=== PATIENT | male | born 1965 | race Caucasian/White ===

== ENCOUNTER 2023-02-25 10:55 | Day surgery (SDC) | payer BC ==
[2023-02-21 09:45] LABS: BASOPHILS # (AUTO) 0.1 X10'3 (0-0.2); EOSINOPHILS # (AUTO) 0.1 X10'3 (0-0.9); LYMPHOCYTES # (AUTO) 0.8 X10'3 (1.1-4.8); MEAN CORPUSCULAR VOLUME 96.5 FL (78-98); MEAN PLATELET VOLUME 6.7 FL (7.4-10.4); MONOCYTES # (AUTO) 0.5 X10'3 (0-0.9); NEUTROPHILS % (AUTO) 67.1 % (42-75)
[2023-02-21 09:47] LABS: BASOPHILS % (AUTO) 1.8 % (0-1); EOSINOPHILS % (AUTO) 2.4 % (0-6); HEMATOCRIT 32.7 % (42.0-52.0); HEMOGLOBIN 11.5 g/dl (14.0-17.9); LYMPHOCYTES % (AUTO) 17.5 % (21-51); MEAN CORPUSCULAR HGB CONC 35.3 g/dL (33.0-36.5); MONOCYTES % (AUTO) 11.2 % (2-12); NEUTROPHILS # (AUTO) 3.1 X10'3 (1.8-7.7); PLATELET COUNT 275 X10'3 (140-440); RED BLOOD COUNT 3.39 X10'6 (4.70-6.10); RED CELL DISTRIBUTION WIDTH 12.7 % (11.5-14.5); WHITE BLOOD COUNT 4.6 X10'3 (4.5-11.0)
[2023-02-21 10:01] LABS: APTT 26 SECONDS (22-32)
[2023-02-21 10:06] LABS: ALBUMIN 4.4 G/DL (3.4-5.0); ANION GAP 6 (8-16); BLOOD UREA NITROGEN 28 MG/DL (7-18); BUN/CREATININE RATIO 22.4 (10.0-20.0); CALCIUM 9.9 MG/DL (8.5-10.1); CHLORIDE 97 MMOL/L (99-107); CHOL/HDL RATIO 1.8 (0.00-4.99); CHOLESTEROL 160 MG/DL (0-200); CREATININE 1.25 MG/DL (0.60-1.10); GLUCOSE 106 MG/DL (70-104); HDL CHOLESTEROL 89 MG/DL (35-60); LDL CHOLESTEROL 55 MG/DL (50-100); POTASSIUM 4.4 MMOL/L (3.5-5.1); SODIUM 134 MMOL/L (135-145); TOTAL CARBON DIOXIDE 30.7 MMOL/L (24-32); TRIGLYCERIDES 36 MG/DL (20-135); eGFR 60 ML/MIN
[2023-02-25] VITALS (10 sets, daily range): BP systolic 92–144; BP diastolic 53–73
[~2023-02-25] VITALS: Ht 175.3 cm; Wt 72.6 kg
[~2023-02-25 10:55] MED LIST: ASPI-611 PO; ATOR40TA71 PO; CLOP75TA33 PO; LISI10TA27 PO; LOP25T PO; VARE0.5T PO
[2023-02-25] MEDS ORDERED: normal saline 1,000 ML IV SCH (11:10)
[2023-02-25] MEDS ORDERED: diphenhydrAMINE 25mg capsule PO PRN (11:10)
[2023-02-25] MEDS ORDERED: LORazepam 0.5 MG tablet PO PRN (11:10)
[2023-02-25] MEDS ORDERED: nitroGLYCERIN-Tridil 50MG/D5W 250 ML IV ONE (11:49)
[2023-02-25] MEDS ORDERED: midazolam 1 mg/ML 2ml injection ONE ×2 (11:49→12:27)
[2023-02-25] MEDS ORDERED: LIDOcaine 1% (10mg/ml) 2ml vial ONE (11:49)
[2023-02-25] MEDS ORDERED: fentaNYL/PF 50MCG/1 ML 2ML syringe ONE (11:49)
[2023-02-25] MEDS ORDERED: verapamil 2.5 mg/ml inj IV ONE (11:49)
[2023-02-25] MEDS ORDERED: heparin 1,000unit/ml 10ml vial 10 ML ONE (11:50)
[2023-02-25] MEDS ORDERED: iohexol 350MG/ML 100ml bottle IV ONE ×2 (11:50→12:31)
[2023-02-25] MEDS ORDERED: iohexol 350 MG/ML 50ML vial IV ONE (11:50)
[2023-02-25] MEDS ORDERED: ATOR-2 PO (11:53)
[2023-02-25] MEDS ORDERED: LISI40TA13 PO (11:53)
[2023-02-25] MEDS ORDERED: NITR0.4T51 SL (11:54)
[2023-02-25] MEDS ORDERED: AMLO5TAB16 PO (11:54)
[2023-02-25] MEDS ORDERED: CHLO25TA10 PO (11:54)
[2023-02-25] MEDS ORDERED: SERT-432 PO (11:55)
[2023-02-25] MEDS ORDERED: MULT-1085 PO (11:56)
[2023-02-25] MEDS ORDERED: LIDOcaine 1% 30ml preserv. free vial ONE (12:24)
[2023-02-25] MEDS ORDERED: proCHLORperazine 10 MG/2 ml inj IV PRN (13:15)
[2023-02-25] MEDS ORDERED: OXAZEpam 15mg capsule PO PRN (13:15)
[2023-02-25] MEDS ORDERED: ondansetron/PF 4mg/2ml inj IV PRN (13:15)
== END 2023-02-25 16:50 | disposition home or self-care (01) ==
LOC: SSTAY O 10:55
PROVIDERS: ATTEND Student in an Organized Health Care Education/Training Program
DX: R94.39 Abnormal result of other cardiovascular function study (principal); I25.10 Atherosclerotic heart disease of native coronary artery without angina pectoris; I10 Essential (primary) hypertension; E78.5 Hyperlipidemia, unspecified; E11.9 Type 2 diabetes mellitus without complications; Z95.5 Presence of coronary angioplasty implant and graft; Z79.82 Long term (current) use of aspirin; Z79.899 Other long term (current) drug therapy; F17.290 Nicotine dependence, other tobacco product, uncomplicated; Z88.5 Allergy status to narcotic agent; Z79.01 Long term (current) use of anticoagulants
CPT/HCPCS: 36415; 80048; 80061; 85025; 85610; 85730; 93005; 93458; 99152; 99153; C1760; C1894; J1644; J2250; J3010; J3490; J7030; Q0163; Q9967; A6258

== ENCOUNTER 2023-04-07 06:07 | Inpatient (IN) | payer BC ==
[2023-04-04 14:17] LABS: CLARITY,URINE CLEAR (Clear); COLOR,URINE STRAW (Yellow); GLUCOSE, URINE NEGATIVE (Neg); KETONES,URINE NEGATIVE (Neg); LEUKOCYTE ESTERASE ,URINE NEGATIVE (Neg); NITRITES, URINE NEGATIVE (Neg); OCCULT BLOOD,URINE NEGATIVE (Neg); PH,URINE 6.5 (4.8-8.0); PROTEIN,URINE NEGATIVE (Neg); UROBILINOGEN,URINE 0.2 E.U/dL (0.2-1.0)
[2023-04-04 14:19] LABS: UA COLLECTION TYPE VOIDED
[2023-04-04 14:27] LABS: PRE OP PROTIME 9.9 SECONDS (9.0-12.0)
[2023-04-04 14:28] LABS: ALBUMIN 4.4 G/DL (3.4-5.0); ALBUMIN/GLOBULIN RATIO 1.4 (1.1-1.5); ALKALINE PHOSPHATASE 73 IU/L (46-116); BLOOD UREA NITROGEN 15 MG/DL (7-18); BUN/CREATININE RATIO 15.8 (10.0-20.0); CALCIUM 9.3 MG/DL (8.5-10.1); CHLORIDE 87 MMOL/L (99-107); CREATININE 0.95 MG/DL (0.60-1.10); PRE OP ALT 77 U/L (30-65); PRE OP ANION GAP 10 (8-16); PRE OP AST 51 U/L (10-37); PRE OP BILIRUB, TOTAL 0.6 MG/DL (0.0-1.0); PRE OP GLUCOSE 130 MG/DL (70-104); PRE OP POTASSIUM 3.7 MMOL/L (3.4-5.1); TOTAL CARBON DIOXIDE 30.1 MMOL/L (24-32); TOTAL PROTEIN 7.5 G/DL (6.4-8.2); eGFR 82 ML/MIN
[2023-04-04 14:33] LABS: PRE OP INR 0.9 INR
[2023-04-04 14:34] LABS: PRE OP SODIUM 127 MMOL/L (135-145)
[2023-04-04 15:10] LABS: BASOPHILS # (AUTO) 0.1 X10'3 (0-0.2); BASOPHILS % (AUTO) 1.5 % (0-1); EOSINOPHILS % (AUTO) 1.1 % (0-6); LYMPHOCYTES # (AUTO) 0.7 X10'3 (1.1-4.8); LYMPHOCYTES % (AUTO) 17.3 % (21-51); MEAN CORPUSCULAR HEMOGLOBIN 34.3 PG (27.0-31.0); MEAN CORPUSCULAR HGB CONC 35.2 g/dL (33.0-36.5); MEAN CORPUSCULAR VOLUME 97.3 FL (78-98); MEAN PLATELET VOLUME 6.9 FL (7.4-10.4); MONOCYTES # (AUTO) 0.4 X10'3 (0-0.9); MONOCYTES % (AUTO) 10.2 % (2-12); NEUTROPHILS % (AUTO) 69.9 % (42-75); PRE OP HEMATOCRIT 31.8 % (42.0-52.0); PRE OP HEMOGLOBIN 11.2 g/dL (14.0-17.9); PRE OP PLATELET COUNT 283 X10'3 (140-440); RED BLOOD COUNT 3.26 X10'6 (4.70-6.10); RED CELL DISTRIBUTION WIDTH 12.8 % (11.5-14.5)
[2023-04-04 15:35] LABS: HEMOGLOBIN A1C 5.6 % (4.5-6.2)
[~2023-04-07] VITALS: Ht 175.3 cm; Wt 77.6 kg
[2023-04-07] VITALS (21 sets, daily range): BP systolic 99–141; BP diastolic 53–79
[~2023-04-07 06:07] MED LIST changes: +AMLO5TAB16 PO; +ATOR-2 PO; -ATOR40TA71 PO; +CHLO25TA10 PO; -CLOP75TA33 PO; -LISI10TA27 PO; +LISI40TA13 PO; -LOP25T PO; +LORazepam 2 mg/ml vial IV PRN; +MULT-1085 PO; +NITR0.4T51 SL; +SERT-432 PO; -VARE0.5T PO; +cefazolin 2gm/D5W 100mL 100 ML IV ONE; +dextrose 50%-water 50ml dispensing syringe IV PRN; +famotidine 20mg tablet PO ONE; +ringers solution, lacted 1,000 ML IV SCH; +vancomycin 1,500 MG in NS 300ml IV soln IV ONE
[2023-04-07] MEDS ORDERED: BUPIVAcaine/PF 2.5 mg/ml (0.25%) 30ml vial ONE (06:58)
[2023-04-07] MEDS ORDERED: epiNEPHrine 1 mg/ml inj ONE (06:58)
[2023-04-07] MEDS ORDERED: ceFAZolin 1000mg inj ONE (06:58)
[2023-04-07 07:29] LABS: ISTAT HGB 9.9 g/dl (14.0-17.9); ISTAT IONIZED CALCIUM 1.24 mmol/L (1.03-1.32); ISTAT K 4.4 mmol/L (3.5-5.1)
[2023-04-07 07:35] LABS: ABG BASE EXCESS -0.3 mmol/L (-2.0-2.0); ABG HCO3 22.7 mmol/L (22.0-26.0); ABG OXYGEN SATURATION 96.6 % (94-97); ABG PCO2 (T) 31.9 mmHg (35.0-48.0); ABG PO2 (T) 93.5 mmHg (75.0-100.0); ALLEN'S TEST POSITIVE; FCOHb 1.6 % (0.0-3.9); FMetHb 0.2 % (0.0-1.5); FO2Hb 94.9 % (94-97); TOTAL HEMOGLOBIN 11.8 G/dl (14.0-17.9)
[2023-04-07] MEDS ORDERED: MIDAZolam 1mg/ml 10ml vial ONE (07:37)
[2023-04-07] MEDS ORDERED: SUfentanil 50mcg/ml 1ml amp IV ONE (07:38)
[2023-04-07] MEDS ORDERED: NORepinephrine 8 MG in NS 250 ML BAG (32 mcg/ml) IV ONE (07:44)
[2023-04-07] MEDS ORDERED: rocuronium 10mg/ml inj IV ONE ×5 (07:44→09:06)
[2023-04-07] MEDS ORDERED: isoflurane 100ml inhalation liquid IH ONE (07:44)
[2023-04-07] MEDS ORDERED: nitroGLYCERIN in D5W 50mg/250ml (Tridil) infusion IV ONE (07:44)
[2023-04-07] MEDS ORDERED: LIDOcaine 2% (20mg/ml) 5ml vial ONE (07:47)
[2023-04-07] MEDS ORDERED: propofol inj 20 ML IV ONE (07:47)
[2023-04-07] MEDS ORDERED: 0.9 % SODIUM CHLORIDE 10 ML VIAL ONE ×3 (07:47)
[2023-04-07] MEDS ORDERED: phenylephrine 10mg/ml inj. -priapism dosing ONE (07:48)
[2023-04-07 08:38] LABS: ABG BASE EXCESS 3.1 mmol/L (-2.0-2.0); ABG HCO3 26.9 mmol/L (22.0-26.0); ABG OXYGEN SATURATION 99.6 % (94-97); ABG PCO2 37.7 mmHg (35.0-48.0); ABG PO2 516.7 mmHg (75.0-100.0); CL (ABG) 99 mmol/L (99-107); FCOHb 0.4 % (0.0-3.9); FMetHb 0.3 % (0.0-1.5); FO2Hb 98.9 % (94-97); GLUCOSE (ABG) 90 mg/dl (70-104); IONIZED CA (ABG) 1.13 mmol/L (1.10-1.30); K (ABG) 3.6 mmol/L (3.5-5.1); TOTAL HEMOGLOBIN 9.6 G/dl (14.0-17.9)
[2023-04-07] MEDS ORDERED: NORepinephrine 1 mg/ml inj IV ONE (09:00)
[2023-04-07] MEDS ORDERED: albumin (human) 25% 100 ML IV solution IV ONE (09:00)
[2023-04-07] MEDS ORDERED: methylPREDNISolone sod succ 1000mg vial ONE (09:00)
[2023-04-07] MEDS ORDERED: calcium chloride 100 MG/1 ML inj IV ONE (09:00)
[2023-04-07] MEDS ORDERED: mannitol 12.5gm/50mL VIAL IV ONE (09:00)
[2023-04-07] MEDS ORDERED: potassium Cl 2 mEq/ml inj IV ONE (09:00)
[2023-04-07] MEDS ORDERED: sodium bicarbonate (8.4%) 1 mEq/ml syringe ONE (09:00)
[2023-04-07] MEDS ORDERED: aminocaproic acid 250 MG/1 ML inj. ONE (09:00)
[2023-04-07] MEDS ORDERED: heparin 10,000 units/1 ML INJ ONE ×2 (09:00→14:00)
[2023-04-07] MEDS ORDERED: heparin 1,000 units/ml 10ml inj ONE (09:00)
[2023-04-07] MEDS ORDERED: LIDOcaine 2% (20 mg/ml) 5ml cardiac syringe ONE (09:00)
[2023-04-07] MEDS ORDERED: papaverine 30 mg/ml 2ml inj. IV ONE (09:11)
[2023-04-07] MEDS ORDERED: heparin 10,000 units/1 ML INJ IR ONE (09:12)
[2023-04-07] MEDS ORDERED: fentaNYL/PF 50MCG/1 ML 2ML syringe IV PRN (10:20)
[2023-04-07] MEDS ORDERED: ondansetron/PF 4mg/2ml inj IV PRN ×2 (10:20→13:35)
[2023-04-07] MEDS ORDERED: propofol 1000mg/100ml bottle 100 ML IV SCH (10:20)
[2023-04-07] MEDS ORDERED: ringers solution, lacted 1,000 ML IV SCH (10:20)
[2023-04-07] MEDS ORDERED: FENTANYL-0.9 % NACL/PF 100 ML IV PRN (10:20)
[2023-04-07 10:38] LABS: ABG BASE EXCESS 5.1 mmol/L (-2.0-2.0); ABG HCO3 29.2 mmol/L (22.0-26.0); ABG OXYGEN SATURATION 99.7 % (94-97); ABG PCO2 40.8 mmHg (35.0-48.0); ABG PO2 302.6 mmHg (75.0-100.0); CL (ABG) 98 mmol/L (99-107); FCOHb 1.1 % (0.0-3.9); FMetHb 0.3 % (0.0-1.5); FO2Hb 98.3 % (94-97); GLUCOSE (ABG) 103 mg/dl (70-104); IONIZED CA (ABG) 1.03 mmol/L (1.10-1.30); K (ABG) 4.9 mmol/L (3.5-5.1); TOTAL HEMOGLOBIN 7.4 G/dl (14.0-17.9)
[2023-04-07 11:28] LABS: ABG BASE EXCESS VENOUS 1.7 mmol/L (-2.0 - 2.0); ABG HCO3 VENOUS 25.7 mmol/L (21.0-28.0); ABG PCO2 VENOUS 37.1 mmHg (41.0-54.0); ABG PO2 VENOUS 42.5 mmHg (25.0-35.0); CL (ABG) 99 mmol/L (99-107); FCOHb VENOUS 1.2 %; FHHb VENOUS 20.9 %; FMetHb VENOUS 0.3 % (0.0 - 0.5); FO2Hb VENOUS 77.6 %; GLUCOSE (ABG) 111 mg/dl (70-104); IONIZED CA (ABG) 1.06 mmol/L (1.10-1.30); K (ABG) 5.9 mmol/L (3.5-5.1); TOTAL HEMOGLOBIN 7.6 G/dl (14.0-17.9)
[2023-04-07 12:16] LABS: ABG BASE EXCESS 2.5 mmol/L (-2.0-2.0); ABG HCO3 26.5 mmol/L (22.0-26.0); ABG OXYGEN SATURATION 99.6 % (94-97); ABG PCO2 37.9 mmHg (35.0-48.0); ABG PO2 365.9 mmHg (75.0-100.0); CL (ABG) 97 mmol/L (99-107); FCOHb 1.3 % (0.0-3.9); FMetHb 0.3 % (0.0-1.5); GLUCOSE (ABG) 147 mg/dl (70-104); IONIZED CA (ABG) 1.46 mmol/L (1.10-1.30); TOTAL HEMOGLOBIN 6.4 G/dl (14.0-17.9)
[2023-04-07 12:34] LABS: ABG OXYGEN SATURATION 99.7 % (94-97); ABG PCO2 37.2 mmHg (35.0-48.0); ABG PO2 326.3 mmHg (75.0-100.0); CL (ABG) 100 mmol/L (99-107); FCOHb 1.2 % (0.0-3.9); FMetHb 0.3 % (0.0-1.5); FO2Hb 98.2 % (94-97); GLUCOSE (ABG) 140 mg/dl (70-104); IONIZED CA (ABG) 1.23 mmol/L (1.10-1.30); K (ABG) 4.3 mmol/L (3.5-5.1); TOTAL HEMOGLOBIN 7.2 G/dl (14.0-17.9)
[2023-04-07] MEDS ORDERED: albumin (Human) 5% 250ml 250 ML IV ONE (12:51)
[2023-04-07] MEDS ORDERED: dexamethasone sod phosphate 4mg/ml inj. ONE (13:04)
[2023-04-07] MEDS ORDERED: ondansetron/PF 4mg/2ml inj ONE (13:04)
[2023-04-07] MEDS ORDERED: Neutra Phos packet PO PRN (13:35)
[2023-04-07] MEDS ORDERED: nitroGLYCERIN-Tridil 50MG/D5W 250 ML IV PRN (13:35)
[2023-04-07] MEDS ORDERED: niCARDipine-NS 40mg/200ml IVPB 200 ML IV PRN (13:35)
[2023-04-07] MEDS ORDERED: morphine 4 MG/ML inj SYRINge IV PRN (13:35)
[2023-04-07] MEDS ORDERED: potassium Cl 40MEQ/270ML bag 250 ML IV PRN (13:35)
[2023-04-07] MEDS ORDERED: magnesium 4gm in 100ml NS 100 ML IV PRN (13:35)
[2023-04-07] MEDS ORDERED: bisacodyl 10mg suppository rectal RC PRN (13:35)
[2023-04-07] MEDS ORDERED: metoclopramide 5 mg/ml inj IV PRN (13:35)
[2023-04-07] MEDS ORDERED: morphine 4 MG/ML inj SYRINge ONE (13:35)
[2023-04-07] MEDS ORDERED: Insulin Reg/NS 100units/100mL 100 ML IV SCH (13:35)
[2023-04-07] MEDS ORDERED: normal saline 250ml IV soln 250 ML IV PRN (13:35)
[2023-04-07] MEDS ORDERED: mineral oil 133ml enema RC PRN (13:35)
[2023-04-07] MEDS ORDERED: magnesium hydroxide 30ml (MOM) UD suspension PO PRN (13:35)
[2023-04-07] MEDS ORDERED: DOPamine 400mg/D5W 250ml 250 ML IV PRN (13:35)
[2023-04-07] MEDS ORDERED: morphine 2 MG/ML inj. syringe IV PRN (13:35)
[2023-04-07] MEDS ORDERED: sodium phosphate inj. 30 MMOL in dextrose 5%-water 250 ML IV PRN (13:35)
[2023-04-07] MEDS ORDERED: potassium Cl 20mEq/100mL bag 100 ML IV PRN (13:35)
[2023-04-07] MEDS ORDERED: potassium CL 10mEq/100ml bag 100 ML IV PRN (13:35)
[2023-04-07] MEDS ORDERED: insulin glargine (Lantus) pen - multi-dose SQ PRN (13:35)
[2023-04-07] MEDS ORDERED: potassium Cl 40MEQ/1/2NS 520ml 520 ML IV PRN (13:35)
[2023-04-07] MEDS ORDERED: dextrose 50%-water 50ml dispensing syringe IV PRN (13:35)
[2023-04-07] MEDS ORDERED: sodium chloride 0.45% 1,000 ML IV SCH (13:35)
--- NOTE | 2023-04-07 13:45 | NUR ---
Received to room , accompanied by Marlen Rousseau and surgical crew. Placed on ventilator, to cafeteria monitor, arterial line and PA line pressure zeroed & monitored. Chest tubes to suction at 20 cm. Holloway cath to gravity drainage. Dressings are dry and intact. See assessment record. All vasoactive drugs are infusing via central line.
[2023-04-07] MEDS: NORepinephrine 8mg/ 250ml NS 250 ML IV SCH (14:00)
[2023-04-07] MEDS ORDERED: papaverine 30 mg/ml 2ml inj. ONE (14:00)
[2023-04-07 14:26] LABS: APTT 25 SECONDS (22-32)
[2023-04-07 14:27] LABS: ALANINE AMINOTRANSFERASE 49 U/L (12-78); ALBUMIN 3.5 G/DL (3.4-5.0); ALBUMIN/GLOBULIN RATIO 1.9 (1.1-1.5); ALKALINE PHOSPHATASE 50 IU/L (46-116); ANION GAP 9 (8-16); ASPARTATE AMINO TRANSFERASE 46 U/L (10-37); BILIRUBIN,TOTAL 0.6 MG/DL (0.1-1.0); BLOOD UREA NITROGEN 17 MG/DL (7-18); CALCIUM 8.4 MG/DL (8.5-10.1); CHLORIDE 103 MMOL/L (99-107); GLUCOSE 113 MG/DL (70-104); POTASSIUM 3.9 MMOL/L (3.5-5.1); SODIUM 139 MMOL/L (135-145); TOTAL CARBON DIOXIDE 26.7 MMOL/L (24-32); TOTAL PROTEIN 5.3 G/DL (6.4-8.2); eGFR 77 ML/MIN
[2023-04-07 14:35] LABS: PHOSPHORUS 1.2 MG/DL (2.3-4.5)
[2023-04-07] MEDS: albumin (Human) 5% 250ml 250 ML IV PRN ×3 (15:01→16:59)
[2023-04-07 15:06] LABS: BASOPHILS # (AUTO) 0.1 X10'3 (0-0.2); BASOPHILS % (AUTO) 0.8 % (0-1); EOSINOPHILS # (AUTO) 0.1 X10'3 (0-0.9); EOSINOPHILS % (AUTO) 0.6 % (0-6); HEMATOCRIT 24.9 % (42.0-52.0); HEMOGLOBIN 8.7 g/dl (14.0-17.9); LYMPHOCYTES # (AUTO) 0.5 X10'3 (1.1-4.8); LYMPHOCYTES % (AUTO) 6.1 % (21-51); MEAN CORPUSCULAR HGB CONC 34.8 g/dL (33.0-36.5); MEAN CORPUSCULAR VOLUME 97.9 FL (78-98); MEAN PLATELET VOLUME 6.9 FL (7.4-10.4); MONOCYTES # (AUTO) 0.4 X10'3 (0-0.9); MONOCYTES % (AUTO) 4.2 % (2-12); NEUTROPHILS # (AUTO) 7.8 X10'3 (1.8-7.7); NEUTROPHILS % (AUTO) 88.3 % (42-75); PLATELET COUNT 178 X10'3 (140-440); RED BLOOD COUNT 2.54 X10'6 (4.70-6.10); RED CELL DISTRIBUTION WIDTH 12.8 % (11.5-14.5); WHITE BLOOD COUNT 8.9 X10'3 (4.5-11.0)
[2023-04-07] MEDS ORDERED: dexmedetomidin/NS 400mcg/100ml 100 ML IV SCH (16:10)
[2023-04-07] MEDS: dexmedetomidine inj. 400 MCG in normal saline 100ml IV soln 96 ML IV SCH (16:58)
[2023-04-07] MEDS: ceFAZolin/D5W- 1GM premix 50 ML IV SCH ×2 (17:28→23:58)
[2023-04-07] MEDS: sodium phosphate inj. 15 MMOL in dextrose 5%-water 250 ML IV PRN ×2 (17:52→22:18)
[2023-04-07] MEDS: Insulin Reg/NS 100units/100mL 100 ML IV SCH (17:57)
--- NOTE | 2023-04-07 18:19 | NUR ---
Patient in room ICU 2038. I have received report from Sukhwinder GUTIERREZ and had the opportunity to ask questions and assume patient care.
--- NOTE | 2023-04-07 20:23 | NUR ---
Jessica updated, will try weaning trial to extubate.
[2023-04-07] MEDS: sertraline 25mg tablet PO SCH (20:39)
[2023-04-07] MEDS: gabapentin 300mg capsule PO SCH (20:39)
[2023-04-07] MEDS: mupirocin 2% nasal ointment 1gm UD NS SCH (20:39)
[2023-04-07] MEDS: sennosides/docusate sodium tablet PO SCH (20:39)
[2023-04-07] MEDS: vancomycin/NS 1 GM ADD-VANTAGE 250 ML IV SCH (20:39)
[2023-04-07 20:45] LABS: ABG BASE EXCESS -0.8 mmol/L (-2.0-2.0); ABG HCO3 23.7 mmol/L (22.0-26.0); ABG PCO2 (T) 37.2 mmHg (35.0-48.0); ABG PO2 (T) 142.5 mmHg (75.0-100.0); FCOHb 0.2 % (0.0-3.9); FMetHb 0.4 % (0.0-1.5); FO2Hb 97.4 % (94-97); PATIENT TEMPERATURE 36.3; PEEP 5 cm H2O; TOTAL HEMOGLOBIN 8.5 G/dl (14.0-17.9)
--- NOTE | 2023-04-07 21:09 | NUR ---
Extubated 2054 to 4L NC.
[2023-04-07 21:16] LABS: BASOPHILS % (AUTO) 0.1 % (0-1); EOSINOPHILS % (AUTO) 0 % (0-6); HEMATOCRIT 22.7 % (42.0-52.0); HEMOGLOBIN 7.9 g/dl (14.0-17.9); LYMPHOCYTES # (AUTO) 0.2 X10'3 (1.1-4.8); LYMPHOCYTES % (AUTO) 3.2 % (21-51); MEAN CORPUSCULAR HEMOGLOBIN 33.7 PG (27.0-31.0); MEAN CORPUSCULAR HGB CONC 34.9 g/dL (33.0-36.5); MEAN CORPUSCULAR VOLUME 96.4 FL (78-98); MEAN PLATELET VOLUME 7.2 FL (7.4-10.4); MONOCYTES # (AUTO) 0.1 X10'3 (0-0.9); MONOCYTES % (AUTO) 2.8 % (2-12); NEUTROPHILS # (AUTO) 4.8 X10'3 (1.8-7.7); NEUTROPHILS % (AUTO) 93.9 % (42-75); PLATELET COUNT 111 X10'3 (140-440); RED BLOOD COUNT 2.35 X10'6 (4.70-6.10); RED CELL DISTRIBUTION WIDTH 13.1 % (11.5-14.5); WHITE BLOOD COUNT 5.1 X10'3 (4.5-11.0)
[2023-04-07 21:21] LABS: ALBUMIN 3.7 G/DL (3.4-5.0); ANION GAP 11 (8-16); BLOOD UREA NITROGEN 17 MG/DL (7-18); BUN/CREATININE RATIO 13.4 (10.0-20.0); CALCIUM 7.8 MG/DL (8.5-10.1); CHLORIDE 107 MMOL/L (99-107); CREATININE 1.27 MG/DL (0.60-1.10); GLUCOSE 169 MG/DL (70-104); MAGNESIUM 2.1 MG/DL (1.5-2.4); PHOSPHORUS 1.9 MG/DL (2.3-4.5); POTASSIUM 3.9 MMOL/L (3.5-5.1); SODIUM 141 MMOL/L (135-145); TOTAL CARBON DIOXIDE 23.5 MMOL/L (24-32); eGFR 58 ML/MIN
[2023-04-07] MEDS: morphine 2 MG/ML inj. syringe IV PRN ×2 (21:22→22:58)
--- NOTE | 2023-04-07 21:36 | NUR ---
Dr Lopez updated on time of extubation and lab values. Addendum: 04/07/23 at 2137 by Chika Bernal RN No new orders at this time.
[2023-04-07] MEDS: magnesium 2GM in 50ml NS 50 ML IV PRN (21:53)
[2023-04-07] MEDS: potassium Cl 40MEQ/270ML bag 270 ML IV PRN (22:19)
[2023-04-08] VITALS (29 sets, daily range): BP systolic 72–126; BP diastolic 42–77
[2023-04-08] MEDS: HYDROcodone/acetaminophen 10/325mg tab PO PRN ×2 (00:27→04:29)
[2023-04-08 02:32] LABS: BASOPHILS % (AUTO) 0 % (0-1); EOSINOPHILS % (AUTO) 0 % (0-6); HEMATOCRIT 22.6 % (42.0-52.0); HEMOGLOBIN 7.9 g/dl (14.0-17.9); LYMPHOCYTES # (AUTO) 0.2 X10'3 (1.1-4.8); LYMPHOCYTES % (AUTO) 2.8 % (21-51); MEAN CORPUSCULAR VOLUME 97.3 FL (78-98); MEAN PLATELET VOLUME 7.4 FL (7.4-10.4); MONOCYTES # (AUTO) 0.3 X10'3 (0-0.9); MONOCYTES % (AUTO) 4.6 % (2-12); NEUTROPHILS # (AUTO) 6.6 X10'3 (1.8-7.7); NEUTROPHILS % (AUTO) 92.6 % (42-75); PLATELET COUNT 111 X10'3 (140-440); RED BLOOD COUNT 2.33 X10'6 (4.70-6.10); RED CELL DISTRIBUTION WIDTH 12.9 % (11.5-14.5); WHITE BLOOD COUNT 7.2 X10'3 (4.5-11.0)
[2023-04-08 02:41] LABS: APTT 31 SECONDS (22-32)
[2023-04-08 02:44] LABS: ALANINE AMINOTRANSFERASE 40 U/L (12-78); ALBUMIN 3.6 G/DL (3.4-5.0); ALBUMIN/GLOBULIN RATIO 2.1 (1.1-1.5); ALKALINE PHOSPHATASE 34 IU/L (46-116); ANION GAP 12 (8-16); ASPARTATE AMINO TRANSFERASE 41 U/L (10-37); BILIRUBIN,TOTAL 0.7 MG/DL (0.1-1.0); BLOOD UREA NITROGEN 18 MG/DL (7-18); BUN/CREATININE RATIO 16.2 (10.0-20.0); CALCIUM 7.7 MG/DL (8.5-10.1); CHLORIDE 106 MMOL/L (99-107); CREATININE 1.11 MG/DL (0.60-1.10); GLUCOSE 136 MG/DL (70-104); MAGNESIUM 2.7 MG/DL (1.5-2.4); PHOSPHORUS 2.8 MG/DL (2.3-4.5); SODIUM 141 MMOL/L (135-145); TOTAL CARBON DIOXIDE 23.4 MMOL/L (24-32); TOTAL PROTEIN 5.3 G/DL (6.4-8.2); TRIGLYCERIDES 15 MG/DL (20-135); eGFR 68 ML/MIN
[2023-04-08] MEDS: potassium Cl 40MEQ/270ML bag 270 ML IV PRN (03:58)
[2023-04-08] MEDS: dexmedetomidine inj. 400 MCG in normal saline 100ml IV soln 96 ML IV SCH ×2 (06:12→20:09)
--- NOTE | 2023-04-08 06:15 | NUR ---
Problems reprioritized. Patient report given, questions answered & plan of care reviewed with Sukhwinder GUTIERREZ. Pt hesitant to move or cough in fear of pain. He holds his breath and BPs drop, he has been educated not to do this. Pt took second dose of norco and began itching as his allergy to hydrocodone stated he would. Lotion applied to skin as requested.
--- NOTE | 2023-04-08 06:30 | NUR ---
Patient in room ICU 2038. I have received report from BRENDA Pretty and had the opportunity to ask questions and assume patient care.
[2023-04-08] MEDS: aspirin 81mg tab.chew PO SCH (07:39)
[2023-04-08] MEDS: gabapentin 300mg capsule PO SCH ×5 (07:39→21:00)
[2023-04-08] MEDS: sennosides/docusate sodium tablet PO SCH ×2 (07:39→20:20)
[2023-04-08] MEDS: atorvastatin 20mg tablet PO SCH (07:39)
[2023-04-08] MEDS: multivitamins, therapeutics tablet PO SCH (07:39)
[2023-04-08] MEDS: ceFAZolin/D5W- 1GM premix 50 ML IV SCH ×2 (07:40→16:46)
[2023-04-08] MEDS: mupirocin 2% nasal ointment 1gm UD NS SCH ×2 (08:00→20:21)
[2023-04-08] MEDS ORDERED: metoprolol tartrate 12.5mg (1/2 tablet) PO SCH (08:00)
[2023-04-08] MEDS: vancomycin/NS 1 GM ADD-VANTAGE 250 ML IV SCH ×2 (08:50→20:21)
[2023-04-08] MEDS ORDERED: ipratropium 0.5 MG/2.5ML nebule IH SCH (09:00)
[2023-04-08] MEDS ORDERED: dextrose 50%-water 50ml dispensing syringe IV PRN ×2 (10:25)
[2023-04-08] MEDS ORDERED: insulin Lispro (HumaLOG) vial - multi-dose SQ SCH (10:25)
[2023-04-08] MEDS ORDERED: glucagon, human recombinant 1mg kit SUBCUT PRN (10:25)
[2023-04-08] MEDS ORDERED: MESSAGE TO PHARMACY PO ONE (10:25)
[2023-04-08] MEDS ORDERED: DEXTROSE 15 GM of carb/4 tabs (each vial/BOTTLE has 4 tablets) PO PRN ×2 (10:25)
[2023-04-08] MEDS: morphine 2 MG/ML inj. syringe IV PRN ×3 (10:29→19:25)
--- NOTE | 2023-04-08 10:39 | NUR ---
Nutrition consult: Per EMR pt currently POD #1 s/p CABG x3. Pt just extubated yesterday evening. Pt would benefit from post CABG nutrition therapy education as appropriate. Noted most recent lipid panel WNL with the exception of low TG 15 mg/dL. Will continue to follow. Addendum: 04/08/23 at [address] Amended: Links added.
--- NOTE | 2023-04-08 11:11 | NUR ---
Nutrition consult re: POD #1 s/p CABG, met hyperglycemia protocol. See prior RD note regarding CABG. Per EMR pt with A1c 5.6% with no PMH DM, diabetes education and CHO controlled diet not warranted. Pt with insulin drip on med list for blood sugar management per EMR. Will defer further blood sugar management tx to physician. Will continue to follow. Addendum: 04/08/23 at [address] Amended: Links added.
[2023-04-08] MEDS: ipratropium 0.5 MG/2.5ML nebule IH SCH ×4 (11:14→23:00)
[2023-04-08] MEDS: acetaminophen 325mg tablet PO PRN ×2 (12:03→18:39)
[2023-04-08] MEDS: NORepinephrine 8mg/ 250ml NS 250 ML IV SCH (13:06)
[2023-04-08] MEDS: insulin Lispro (HumaLOG) vial - multi-dose SQ PRN ×2 (13:41→20:34)
[2023-04-08] MEDS: Insulin Reg/NS 100units/100mL 100 ML IV SCH (14:50)
--- NOTE | 2023-04-08 18:14 | NUR ---
Problems reprioritized. Patient report given, questions answered & plan of care reviewed with BRENDA Rock.
--- NOTE | 2023-04-08 19:27 | NUR ---
Pt walked to doorway. Complaints of pain d/t chest tubes
[2023-04-08] MEDS ORDERED: oxyCODONE IR 5mg (immed. release) tablet PO PRN (19:45)
[2023-04-08] MEDS: sertraline 25mg tablet PO SCH (20:21)
[2023-04-08] MEDS ORDERED: insulin glargine (Lantus) pen - multi-dose SQ SCH (21:00)
[2023-04-09] VITALS (19 sets, daily range): BP systolic 108–148; BP diastolic 56–88
[2023-04-09] MEDS: ceFAZolin/D5W- 1GM premix 50 ML IV SCH (00:18)
[2023-04-09 02:30] LABS: BASOPHILS % (AUTO) 0.2 % (0-1); EOSINOPHILS % (AUTO) 0.1 % (0-6); HEMATOCRIT 28.6 % (42.0-52.0); HEMOGLOBIN 9.8 g/dl (14.0-17.9); LYMPHOCYTES # (AUTO) 0.9 X10'3 (1.1-4.8); LYMPHOCYTES % (AUTO) 10.6 % (21-51); MEAN CORPUSCULAR HEMOGLOBIN 32.8 PG (27.0-31.0); MEAN CORPUSCULAR HGB CONC 34.4 g/dL (33.0-36.5); MEAN CORPUSCULAR VOLUME 95.4 FL (78-98); MEAN PLATELET VOLUME 7.8 FL (7.4-10.4); MONOCYTES # (AUTO) 0.7 X10'3 (0-0.9); NEUTROPHILS # (AUTO) 6.8 X10'3 (1.8-7.7); NEUTROPHILS % (AUTO) 81.1 % (42-75); PLATELET COUNT 87 X10'3 (140-440); RED CELL DISTRIBUTION WIDTH 14.8 % (11.5-14.5); WHITE BLOOD COUNT 8.4 X10'3 (4.5-11.0)
[2023-04-09 02:38] LABS: ALBUMIN 3.3 G/DL (3.4-5.0); ANION GAP 8 (8-16); BLOOD UREA NITROGEN 24 MG/DL (7-18); BUN/CREATININE RATIO 23.3 (10.0-20.0); CALCIUM 7.3 MG/DL (8.5-10.1); CHLORIDE 102 MMOL/L (99-107); CREATININE 1.03 MG/DL (0.60-1.10); GLUCOSE 102 MG/DL (70-104); MAGNESIUM 2.2 MG/DL (1.5-2.4); PHOSPHORUS 2.8 MG/DL (2.3-4.5); POTASSIUM 4.2 MMOL/L (3.5-5.1); SODIUM 136 MMOL/L (135-145); TOTAL CARBON DIOXIDE 26.1 MMOL/L (24-32); eGFR 74 ML/MIN
[2023-04-09] MEDS: ipratropium 0.5 MG/2.5ML nebule IH SCH ×6 (02:50→23:00)
[2023-04-09] MEDS: morphine 2 MG/ML inj. syringe IV PRN ×3 (03:40→21:18)
[2023-04-09] MEDS: magnesium 2GM in 50ml NS 50 ML IV PRN (03:40)
[2023-04-09] MEDS: potassium Cl 20 mEq SR tablet PO PRN (03:40)
[2023-04-09] MEDS: pantoprazole 40mg Tablet.DR PO SCH (07:30)
[2023-04-09] MEDS: sennosides/docusate sodium tablet PO SCH ×2 (08:00→21:18)
[2023-04-09] MEDS: atorvastatin 20mg tablet PO SCH (08:00)
[2023-04-09] MEDS: mupirocin 2% nasal ointment 1gm UD NS SCH (08:00)
[2023-04-09] MEDS: multivitamins, therapeutics tablet PO SCH (08:00)
[2023-04-09] MEDS: gabapentin 300mg capsule PO SCH ×3 (08:00→21:18)
[2023-04-09] MEDS: aspirin 81mg tab.chew PO SCH (09:17)
[2023-04-09] MEDS: HYDROcodone/acetaminophen 10/325mg tab PO PRN ×4 (09:18→22:41)
[2023-04-09] MEDS: insulin Lispro (HumaLOG) vial - multi-dose SQ PRN (09:23)
--- NOTE | 2023-04-09 18:09 | NUR ---
Plan for tonight CT output recorded q 2hr. Walk after dinner. Ativan at HS. Plan for tomorrow, DC CT, DC central line, isolate or remove pacer wires. Problems reprioritized. Patient report given, questions answered & plan of care reviewed with
--- NOTE | 2023-04-09 18:15 | NUR ---
Patient in room ICU 2038. I have received report from Celena GUTIERREZ and had the opportunity to ask questions and assume patient care.
[2023-04-09] MEDS: sertraline 25mg tablet PO SCH (21:18)
[2023-04-09] MEDS ORDERED: LORazepam 2 mg/ml vial IV ONE (22:20)
--- NOTE | 2023-04-09 22:24 | NUR ---
PT COMPLAINING OF INSOMNIA; CALLED DR. REGALADO AND INFORMED AND HE ORDERED ATIVAN 1 MG X1
[2023-04-09] MEDS: acetaminophen 325mg tablet PO PRN (22:41)
[2023-04-10] VITALS (14 sets, daily range): BP systolic 92–127; BP diastolic 54–78
[2023-04-10] MEDS: ipratropium 0.5 MG/2.5ML nebule IH SCH ×6 (03:20→23:28)
[2023-04-10] MEDS: HYDROcodone/acetaminophen 10/325mg tab PO PRN ×5 (03:24→21:21)
[2023-04-10] MEDS: acetaminophen 325mg tablet PO PRN (03:24)
[2023-04-10] MEDS: morphine 2 MG/ML inj. syringe IV PRN (05:18)
[2023-04-10 05:54] LABS: BASOPHILS % (AUTO) 0.5 % (0-1); EOSINOPHILS % (AUTO) 0.5 % (0-6); HEMATOCRIT 28.5 % (42.0-52.0); HEMOGLOBIN 9.7 g/dl (14.0-17.9); LYMPHOCYTES # (AUTO) 1.2 X10'3 (1.1-4.8); LYMPHOCYTES % (AUTO) 15.6 % (21-51); MEAN CORPUSCULAR HEMOGLOBIN 32.8 PG (27.0-31.0); MEAN CORPUSCULAR VOLUME 96.7 FL (78-98); MEAN PLATELET VOLUME 8.1 FL (7.4-10.4); MONOCYTES # (AUTO) 0.7 X10'3 (0-0.9); MONOCYTES % (AUTO) 8.9 % (2-12); NEUTROPHILS # (AUTO) 5.8 X10'3 (1.8-7.7); NEUTROPHILS % (AUTO) 74.5 % (42-75); PLATELET COUNT 109 X10'3 (140-440); RED BLOOD COUNT 2.95 X10'6 (4.70-6.10); RED CELL DISTRIBUTION WIDTH 14.6 % (11.5-14.5); WHITE BLOOD COUNT 7.8 X10'3 (4.5-11.0)
[2023-04-10 06:01] LABS: ALBUMIN 3.1 G/DL (3.4-5.0); ANION GAP 7 (8-16); BLOOD UREA NITROGEN 20 MG/DL (7-18); BUN/CREATININE RATIO 20.8 (10.0-20.0); CHLORIDE 101 MMOL/L (99-107); CREATININE 0.96 MG/DL (0.60-1.10); GLUCOSE 92 MG/DL (70-104); MAGNESIUM 2.2 MG/DL (1.5-2.4); PHOSPHORUS 2.3 MG/DL (2.3-4.5); POTASSIUM 4.2 MMOL/L (3.5-5.1); SODIUM 136 MMOL/L (135-145); TOTAL CARBON DIOXIDE 27.6 MMOL/L (24-32); eGFR 81 ML/MIN
--- NOTE | 2023-04-10 06:30 | NUR ---
Problems reprioritized. Patient report given, questions answered & plan of care reviewed with Zev GUTIERREZ.
[2023-04-10] MEDS: pantoprazole 40mg Tablet.DR PO SCH (07:02)
[2023-04-10] MEDS: magnesium 2GM in 50ml NS 50 ML IV PRN (07:12)
[2023-04-10] MEDS: gabapentin 300mg capsule PO SCH ×3 (07:49→21:19)
[2023-04-10] MEDS: atorvastatin 20mg tablet PO SCH (07:50)
[2023-04-10] MEDS: potassium Cl 20 mEq SR tablet PO PRN (07:50)
[2023-04-10] MEDS: multivitamins, therapeutics tablet PO SCH (07:50)
[2023-04-10] MEDS: sennosides/docusate sodium tablet PO SCH ×2 (07:50→19:22)
[2023-04-10] MEDS: aspirin 81mg tab.chew PO SCH (08:31)
[2023-04-10] MEDS ORDERED: potassium Cl 20mEq/100mL bag 100 ML IV PRN (08:45)
[2023-04-10] MEDS ORDERED: potassium Cl 40MEQ/1/2NS 520ml 520 ML IV PRN (08:45)
[2023-04-10] MEDS ORDERED: potassium CL 10mEq/100ml bag 100 ML IV PRN (08:45)
[2023-04-10] MEDS ORDERED: potassium Cl 40MEQ/270ML bag 250 ML IV PRN (08:45)
[2023-04-10] MEDS ORDERED: magnesium 4gm in 100ml NS 100 ML IV PRN (08:45)
[2023-04-10] MEDS ORDERED: potassium Cl 20 mEq SR tablet PO PRN ×2 (08:45)
[2023-04-10] MEDS ORDERED: magnesium 2GM in 50ml NS 50 ML IV PRN (08:45)
[2023-04-10] MEDS ORDERED: diphenhydrAMINE 25mg capsule PO PRN (10:15)
--- NOTE | 2023-04-10 10:52 | NUR ---
CL removed, pt amb, tele placed, report called to Veronica GUTIERREZ, pt transferred to PCU via wheelchair with belongings.
--- NOTE | 2023-04-10 12:59 | NUR ---
Nutrition consult: Pt seen at bedside with SO present, provided with written and verbal post CABG nutrition therapy education. SO states she does most of the cooking and they typically follow the Mediterranean diet at home. Pt and SO deny questions at this time. RD contact information provided and pt/SO encouraged to reach out if needed. Pt endorses a good appetite and states he is getting full from meals. Pt denies any difficulty feeding self with incision site, food allergies, or difficulty chewing/swallowing. LBM 04/07 per EMR, confirmed by pt. Pt denies nutrition intervention to assist with a BM. Pt receiving routine bowel care. Pt informed of PRN bowel care that's available encouraged to let RN know if he would like to utilize it. Pt does state he is passing gas and believes he will have a BM now that he has a bathroom in his room. Will continue to follow. Addendum: 04/10/23 at [address] Amended: Links added.
--- NOTE | 2023-04-10 18:38 | NUR ---
Problems reprioritized. Patient report given, questions answered & plan of care reviewed with Aimee GUTIERREZ, patient stable at transfer of care.
[2023-04-10] MEDS: magnesium Cl slow-release 64mg tablet PO SCH (19:22)
[2023-04-10] MEDS: sertraline 25mg tablet PO SCH (21:19)
[2023-04-10] MEDS ORDERED: LORazepam 1 MG tablet PO ONE (21:35)
[2023-04-11] VITALS (7 sets, daily range): BP systolic 112–144; BP diastolic 60–81
[2023-04-11] MEDS: HYDROcodone/acetaminophen 10/325mg tab PO PRN ×2 (00:35→04:29)
[2023-04-11] MEDS: ipratropium 0.5 MG/2.5ML nebule IH SCH ×3 (03:00→12:03)
--- NOTE | 2023-04-11 06:28 | NUR ---
Patient report given, questions answered & plan of care reviewed with BRENDA Weems
--- NOTE | 2023-04-11 06:35 | NUR ---
Patient in room PCU 3011. I have received report from Aimee GUTIERREZ and had the opportunity to ask questions and assume patient care. Pt is laying high fowlers in bed and is watching shows on his phone. Pt is on 2l NC, no s/s of distress. Pt declines c/o pain at this time. BLL, call light within reach, frequently used items in reach, frequent rounding, oracle database analyst socks on. Will continue to monitor.
[2023-04-11 07:03] LABS: BASOPHILS % (AUTO) 0.6 % (0-1); EOSINOPHILS # (AUTO) 0.1 X10'3 (0-0.9); EOSINOPHILS % (AUTO) 1.7 % (0-6); HEMATOCRIT 27.4 % (42.0-52.0); HEMOGLOBIN 9.4 g/dl (14.0-17.9); LYMPHOCYTES # (AUTO) 0.8 X10'3 (1.1-4.8); LYMPHOCYTES % (AUTO) 12.4 % (21-51); MEAN CORPUSCULAR HEMOGLOBIN 33.1 PG (27.0-31.0); MEAN CORPUSCULAR HGB CONC 34.4 g/dL (33.0-36.5); MEAN CORPUSCULAR VOLUME 96.4 FL (78-98); MEAN PLATELET VOLUME 7.8 FL (7.4-10.4); MONOCYTES # (AUTO) 0.7 X10'3 (0-0.9); MONOCYTES % (AUTO) 10.9 % (2-12); NEUTROPHILS % (AUTO) 74.4 % (42-75); PLATELET COUNT 126 X10'3 (140-440); RED BLOOD COUNT 2.84 X10'6 (4.70-6.10); RED CELL DISTRIBUTION WIDTH 14.1 % (11.5-14.5); WHITE BLOOD COUNT 6.8 X10'3 (4.5-11.0)
[2023-04-11 07:07] LABS: ALBUMIN 2.9 G/DL (3.4-5.0); ANION GAP 9 (8-16); BLOOD UREA NITROGEN 19 MG/DL (7-18); BUN/CREATININE RATIO 19.4 (10.0-20.0); CALCIUM 8.4 MG/DL (8.5-10.1); CHLORIDE 100 MMOL/L (99-107); CREATININE 0.98 MG/DL (0.60-1.10); GLUCOSE 87 MG/DL (70-104); POTASSIUM 4.1 MMOL/L (3.5-5.1); SODIUM 137 MMOL/L (135-145); TOTAL CARBON DIOXIDE 28.3 MMOL/L (24-32); eGFR 79 ML/MIN
[2023-04-11] MEDS: pantoprazole 40mg Tablet.DR PO SCH (07:30)
[2023-04-11] MEDS ORDERED: magnesium citrate 296ml oral solution PO ONE (08:45)
[2023-04-11] MEDS ORDERED: furosemide 20MG tablet PO ONE (08:50)
[2023-04-11] MEDS: gabapentin 300mg capsule PO SCH ×3 (08:53→20:01)
[2023-04-11] MEDS: atorvastatin 20mg tablet PO SCH (08:53)
[2023-04-11] MEDS: magnesium Cl slow-release 64mg tablet PO SCH ×2 (08:54→20:01)
[2023-04-11] MEDS: oxyCODONE IR 5mg (immed. release) tablet PO PRN ×4 (08:54→21:37)
[2023-04-11] MEDS: multivitamins, therapeutics tablet PO SCH (08:54)
[2023-04-11] MEDS: sennosides/docusate sodium tablet PO SCH ×2 (08:55→20:00)
[2023-04-11] MEDS: aspirin 81mg tab.chew PO SCH (08:55)
[2023-04-11] MEDS ORDERED: CLOP-32 PO (08:56)
[2023-04-11] MEDS ORDERED: OXYC-658 PO (08:56)
[2023-04-11] MEDS: clopidogrel 75mg tablet PO SCH (09:42)
[2023-04-11] MEDS ORDERED: albuterol 2.5 MG/3 ML nebule NEB ONE (12:30)
[2023-04-11] MEDS ORDERED: diphenhydrAMINE 25mg capsule PO PRN (16:05)
[2023-04-11] MEDS ORDERED: zolpidem 5mg tablet PO PRN (16:05)
[2023-04-11] MEDS: ipratropium/albuterol 3ml nebule NEB SCH ×3 (16:20→23:28)
--- NOTE | 2023-04-11 18:27 | NUR ---
Problems reprioritized. Patient report given, questions answered & plan of care reviewed with Melodie GUTIERREZ.
[2023-04-11] MEDS: sertraline 25mg tablet PO SCH (20:01)
[2023-04-12 02:00] VITALS: BP 136/84
[2023-04-12] MEDS: ipratropium/albuterol 3ml nebule NEB SCH ×6 (03:43→23:31)
[2023-04-12] MEDS: oxyCODONE IR 5mg (immed. release) tablet PO PRN ×5 (04:14→21:42)
[2023-04-12 06:00] VITALS: BP 130/75
[2023-04-12 06:43] LABS: ALBUMIN 3.1 G/DL (3.4-5.0); ANION GAP 8 (8-16); BASOPHILS % (AUTO) 0.5 % (0-1); BLOOD UREA NITROGEN 18 MG/DL (7-18); BUN/CREATININE RATIO 16.5 (10.0-20.0); CALCIUM 9.2 MG/DL (8.5-10.1); CHLORIDE 99 MMOL/L (99-107); CREATININE 1.09 MG/DL (0.60-1.10); EOSINOPHILS # (AUTO) 0.1 X10'3 (0-0.9); EOSINOPHILS % (AUTO) 2.1 % (0-6); GLUCOSE 103 MG/DL (70-104); HEMATOCRIT 30.6 % (42.0-52.0); HEMOGLOBIN 10.5 g/dl (14.0-17.9); LYMPHOCYTES # (AUTO) 0.8 X10'3 (1.1-4.8); LYMPHOCYTES % (AUTO) 12.8 % (21-51); MEAN CORPUSCULAR HEMOGLOBIN 33.5 PG (27.0-31.0); MEAN CORPUSCULAR HGB CONC 34.4 g/dL (33.0-36.5); MEAN CORPUSCULAR VOLUME 97.5 FL (78-98); MEAN PLATELET VOLUME 7.3 FL (7.4-10.4); MONOCYTES # (AUTO) 0.9 X10'3 (0-0.9); MONOCYTES % (AUTO) 13.7 % (2-12); NEUTROPHILS # (AUTO) 4.7 X10'3 (1.8-7.7); NEUTROPHILS % (AUTO) 70.9 % (42-75); PLATELET COUNT 199 X10'3 (140-440); POTASSIUM 4.5 MMOL/L (3.5-5.1); RED BLOOD COUNT 3.14 X10'6 (4.70-6.10); SODIUM 138 MMOL/L (135-145); TOTAL CARBON DIOXIDE 31.1 MMOL/L (24-32); WHITE BLOOD COUNT 6.6 X10'3 (4.5-11.0); eGFR 70 ML/MIN
--- NOTE | 2023-04-12 06:47 | NUR ---
Patient in room PCU 3011. I have received report from Mleodie GUTIERREZ and had the opportunity to ask questions and assume patient care. Pt is sitting up in bed and is watching TV. Pt on 2L nc, no s/s of distress, Pt declines c/o pain. BLL, call light within reach, frequently used items in reach, frequent rounding, advanced manufacturing consultant socks on. Will continue to monitor.
[2023-04-12] MEDS: pantoprazole 40mg Tablet.DR PO SCH (07:30)
[2023-04-12] MEDS: magnesium Cl slow-release 64mg tablet PO SCH ×2 (08:00→20:00)
[2023-04-12] MEDS: multivitamins, therapeutics tablet PO SCH (08:00)
[2023-04-12] MEDS: sennosides/docusate sodium tablet PO SCH ×2 (08:00→20:00)
[2023-04-12] MEDS: clopidogrel 75mg tablet PO SCH (08:00)
[2023-04-12] MEDS: atorvastatin 20mg tablet PO SCH (08:00)
[2023-04-12] MEDS: gabapentin 300mg capsule PO SCH ×3 (08:00→21:42)
[2023-04-12] MEDS: aspirin 81mg tab.chew PO SCH (08:30)
[2023-04-12] MEDS ORDERED: clopidogrel 75mg tablet PO SCH (10:15)
[2023-04-12] MEDS: furosemide 40mg tablet PO SCH (10:15)
[2023-04-12 11:00] VITALS: BP 139/71
--- NOTE | 2023-04-12 12:19 | NUR ---
Reji Turner 3011- Pt recommends a FOUR wheel walker with a seat for Pts anticipated discharge tomorrow on 04/13.-Faustina SAUCEDO [id number] Page to Case Management Addendum: 04/12/23 at 1811 by Faustina Leos RN Four wheel Walker at bed side, stated she will take home tonight.
[2023-04-12 15:00] VITALS: BP 139/74
[2023-04-12 18:00] VITALS: BP 114/77
--- NOTE | 2023-04-12 18:00 | NUR ---
Patient in room U 3011. I have received report from Lisa and had the opportunity to ask questions and assume patient care, in room.
--- NOTE | 2023-04-12 18:11 | NUR ---
Problems reprioritized. Patient report given, questions answered & plan of care reviewed with Melodie GUTIERREZ.
[2023-04-12] MEDS ORDERED: LORazepam 1 MG tablet PO ONE (21:00)
[2023-04-12] MEDS: sertraline 25mg tablet PO SCH (21:42)
[2023-04-12 22:00] VITALS: BP 125/69
[2023-04-13 02:00] VITALS: BP 114/69
[2023-04-13] MEDS: ipratropium/albuterol 3ml nebule NEB SCH ×3 (02:49→11:00)
[2023-04-13 06:00] VITALS: BP 138/78
[2023-04-13 06:16] LABS: ALBUMIN 2.8 G/DL (3.4-5.0); ANION GAP 9 (8-16); BLOOD UREA NITROGEN 16 MG/DL (7-18); BUN/CREATININE RATIO 15.5 (10.0-20.0); CALCIUM 9.5 MG/DL (8.5-10.1); CHLORIDE 100 MMOL/L (99-107); CREATININE 1.03 MG/DL (0.60-1.10); GLUCOSE 98 MG/DL (70-104); POTASSIUM 4.5 MMOL/L (3.5-5.1); SODIUM 140 MMOL/L (135-145); TOTAL CARBON DIOXIDE 31.1 MMOL/L (24-32); eGFR 74 ML/MIN
[2023-04-13 06:17] LABS: BASOPHILS % (AUTO) 0.4 % (0-1); EOSINOPHILS # (AUTO) 0.1 X10'3 (0-0.9); EOSINOPHILS % (AUTO) 2.6 % (0-6); HEMATOCRIT 29.2 % (42.0-52.0); HEMOGLOBIN 10.1 g/dl (14.0-17.9); LYMPHOCYTES # (AUTO) 0.7 X10'3 (1.1-4.8); LYMPHOCYTES % (AUTO) 12.9 % (21-51); MEAN CORPUSCULAR HEMOGLOBIN 33.6 PG (27.0-31.0); MEAN CORPUSCULAR HGB CONC 34.7 g/dL (33.0-36.5); MEAN CORPUSCULAR VOLUME 96.8 FL (78-98); MONOCYTES % (AUTO) 17.9 % (2-12); NEUTROPHILS # (AUTO) 3.8 X10'3 (1.8-7.7); NEUTROPHILS % (AUTO) 66.2 % (42-75); PLATELET COUNT 226 X10'3 (140-440); RED BLOOD COUNT 3.02 X10'6 (4.70-6.10); RED CELL DISTRIBUTION WIDTH 14.4 % (11.5-14.5); WHITE BLOOD COUNT 5.7 X10'3 (4.5-11.0)
--- NOTE | 2023-04-13 06:18 | NUR ---
Patient in room PCU 3011. I have received report from Melodie GUTIERREZ and had the opportunity to ask questions and assume patient care. Pt sitting high fowlers in bed and is resting comfortably. Pt on 1L NC, no s/s of distress. Pt declines c/o pain at this time. BLL, call light wihtin reach, frequently used items in reach, frequent roudning, environmental scientists socks on. WIll continue to monitor.
--- NOTE | 2023-04-13 06:27 | NUR ---
Patient in room PCU 3011. I have received report from BRENDA Sewell and had the opportunity to ask questions and assume patient care. Pt sitting in bed, BLL, 1L NC, Pt in NAD.
[2023-04-13 06:56] LABS: PLATELET ESTIMATE NORMAL; TOTAL CELLS COUNTED 100
[2023-04-13] MEDS: oxyCODONE IR 5mg (immed. release) tablet PO PRN (07:05)
[2023-04-13] MEDS: pantoprazole 40mg Tablet.DR PO SCH (07:05)
[2023-04-13] MEDS: atorvastatin 20mg tablet PO SCH (08:09)
[2023-04-13] MEDS: clopidogrel 75mg tablet PO SCH (08:09)
[2023-04-13] MEDS: furosemide 40mg tablet PO SCH (08:10)
[2023-04-13] MEDS: sennosides/docusate sodium tablet PO SCH (08:11)
[2023-04-13] MEDS: magnesium Cl slow-release 64mg tablet PO SCH (08:11)
[2023-04-13] MEDS: multivitamins, therapeutics tablet PO SCH (08:12)
[2023-04-13] MEDS: aspirin 81mg tab.chew PO SCH (08:12)
[2023-04-13] MEDS: gabapentin 300mg capsule PO SCH (08:13)
[2023-04-13] MEDS ORDERED: LOP25T PO (08:54)
[2023-04-13] MEDS ORDERED: metoprolol tartrate 12.5mg (1/2 tablet) PO SCH (08:55)
[2023-04-13 09:47] VITALS: BP 127/73
[2023-04-13 09:55] VITALS: BP_SYST 127
--- NOTE | 2023-04-13 11:11 | NUR ---
Pt AOX4, VSS ready for discharge. Pt's PIV removed with cannula intact. Pt's discharge paperwork reviewed with pt and family member at bedside. Pt educated on medications and side effects, all questions answered. Pt in NAD. Pt discharged via wheelchair to private car with family member driving pt home.
== END 2023-04-13 11:10 | disposition home or self-care (01) | DRG 236 ==
LOC: PAS IN 06:07 → ICU 2S 13:35 → PCU 3S 04-10 11:05
PROVIDERS: ADMIT Thoracic Surgery (Cardiothoracic Vascular Surgery); ATTEND Thoracic Surgery (Cardiothoracic Vascular Surgery)
PROC: 021109W Bypass Coronary Artery, Two Arteries from Aorta with Autologous Venous Tissue, Open Approach (ICD-10-PCS; 2023-04-07)
PROC: 06BQ4ZZ Excision of Left Saphenous Vein, Percutaneous Endoscopic Approach (ICD-10-PCS; 2023-04-07)
PROC: 06BP4ZZ Excision of Right Saphenous Vein, Percutaneous Endoscopic Approach (ICD-10-PCS; 2023-04-07)
PROC: B24BZZ4 Ultrasonography of Heart with Aorta, Transesophageal (ICD-10-PCS; 2023-04-07)
PROC: 5A12012 Performance of Cardiac Output, Single, Manual (ICD-10-PCS; 2023-04-07)
PROC: 5A1935Z Respiratory Ventilation, Less than 24 Consecutive Hours (ICD-10-PCS; 2023-04-07)
PROC: 30233N1 Transfusion of Nonautologous Red Blood Cells into Peripheral Vein, Percutaneous Approach (ICD-10-PCS; 2023-04-07)
PROC: 0210099 Bypass Coronary Artery, One Artery from Left Internal Mammary with Autologous Venous Tissue, Open Approach (ICD-10-PCS; principal; 2023-04-07 07:44)
DX: I25.10 Atherosclerotic heart disease of native coronary artery without angina pectoris (principal); I10 Essential (primary) hypertension; F17.200 Nicotine dependence, unspecified, uncomplicated; Z98.61 Coronary angioplasty status
CPT/HCPCS: 0232T; 93306; 93312; 93325; Z7506; Z7508; 36415; 36430; 36600; 71045; 71046; 71250; 80047; 80048; 80053; 81003; 82330; 82435; 82803; 82947; 82948; 83036; 83735; 84100; 84132; 84295; 84478; 85007; 85018; 85025; 85384; 85610; 85730; 86885; 86900; 86901; 86920; 87081; 93005; 93880; 93970; 94002; 94010; 94640; 94668; 94760; 97116; 97161; 97530; A4333; A4615; A4618; A6213; A6258; A6402; A6446; A6449; A7000; A7048; C1751; G0378; J0171; J0690; J1100; J1644; J1815; J2060; J2150; J2250; J2270; J2370; J2405; J2440; J2704; J2930; J3370; J3475; J3480; J3490; J7030; J7040; J7050; J7060; J7120; P9016; P9045; P9047; Q0163

== ENCOUNTER 2023-06-27 05:59 | Day surgery (SDC) | payer BC ==
[2023-06-27] VITALS (18 sets, daily range): BP systolic 101–137; BP diastolic 65–92; PULSE 69–85; RESP 10–16; TEMP 98; O2SAT 97–100
[~2023-06-27] VITALS: Ht 175.3 cm; Wt 70.9 kg
[~2023-06-27 05:59] MED LIST changes: +CLOP75TA34 PO; +DOCUMENT DATE & TIME OF BETA-BLOCKER PO ONE; -LORazepam 2 mg/ml vial IV PRN; +METO25TA6 PO; -NITR0.4T51 SL; -dextrose 50%-water 50ml dispensing syringe IV PRN; +metoprolol tartrate 12.5mg (1/2 tablet) PO ONE; +mupirocin 2% nasal ointment 1gm UD NS ONE; -vancomycin 1,500 MG in NS 300ml IV soln IV ONE
[2023-06-27] MEDS ORDERED: labetalol 20mg/4ml (5mg/ml) syringe IV PRN (07:20)
[2023-06-27] MEDS ORDERED: fentaNYL/PF 50MCG/1 ML 2ML syringe IV PRN ×2 (07:20)
[2023-06-27] MEDS ORDERED: ringers solution, lacted 1,000 ML IV SCH (07:20)
[2023-06-27] MEDS ORDERED: ondansetron/PF 4mg/2ml inj IV PRN (07:20)
[2023-06-27] MEDS ORDERED: morphine 4 MG/ML inj SYRINge IV PRN (07:20)
[2023-06-27] MEDS ORDERED: morphine 2 MG/ML inj. syringe IV PRN (07:20)
[2023-06-27] MEDS ORDERED: hydrALAZINE 20mg/ml inj. IV PRN (07:20)
[2023-06-27 07:50] LABS: BASOPHILS # (AUTO) 0.1 X10'3 (0-0.2); PRE OP HEMOGLOBIN 12.6 g/dL (14.0-17.9); PRE OP PLATELET COUNT 260 X10'3 (140-440)
[2023-06-27 07:52] LABS: BASOPHILS % (AUTO) 1.3 % (0-1); EOSINOPHILS # (AUTO) 0.1 X10'3 (0-0.9); EOSINOPHILS % (AUTO) 2.3 % (0-6); LYMPHOCYTES # (AUTO) 0.9 X10'3 (1.1-4.8); LYMPHOCYTES % (AUTO) 17.9 % (21-51); MEAN CORPUSCULAR VOLUME 94.2 FL (78-98); MEAN PLATELET VOLUME 6.9 FL (7.4-10.4); MONOCYTES # (AUTO) 0.5 X10'3 (0-0.9); MONOCYTES % (AUTO) 10.4 % (2-12); NEUTROPHILS # (AUTO) 3.4 X10'3 (1.8-7.7); NEUTROPHILS % (AUTO) 68.1 % (42-75); PRE OP HEMATOCRIT 36.1 % (42.0-52.0); RED BLOOD COUNT 3.83 X10'6 (4.70-6.10); RED CELL DISTRIBUTION WIDTH 14.4 % (11.5-14.5)
[2023-06-27 08:21] LABS: ALANINE AMINOTRANSFERASE 75 U/L (12-78); ALBUMIN 3.8 G/DL (3.4-5.0); ALBUMIN/GLOBULIN RATIO 1.1 (1.1-1.5); ALKALINE PHOSPHATASE 91 IU/L (46-116); ANION GAP 8 (8-16); ASPARTATE AMINO TRANSFERASE 58 U/L (10-37); BILIRUBIN,TOTAL 0.8 MG/DL (0.1-1.0); BLOOD UREA NITROGEN 18 MG/DL (7-18); BUN/CREATININE RATIO 17.6 (10.0-20.0); CALCIUM 9.4 MG/DL (8.5-10.1); CHLORIDE 99 MMOL/L (99-107); CREATININE 1.02 MG/DL (0.60-1.10); GLUCOSE 115 MG/DL (70-104); SODIUM 135 MMOL/L (135-145); TOTAL CARBON DIOXIDE 27.7 MMOL/L (24-32); TOTAL PROTEIN 7.3 G/DL (6.4-8.2); eCRCL 79 ML/MIN; eGFR 75 ML/MIN
[2023-06-27 08:25] LABS: POTASSIUM 2.9 MMOL/L (3.5-5.1)
[2023-06-27] MEDS ORDERED: LIDOcaine 1% W/epiNEPHrine 1:100,000 20ml vial ONE (08:26)
[2023-06-27] MEDS ORDERED: vancomycin 1,000mg inj ONE (08:27)
[2023-06-27] MEDS ORDERED: BUPIVAcaine 0.5% inj/PF 30 ML ONE (08:27)
[2023-06-27] MEDS ORDERED: fentaNYL/PF 50MCG/1 ML 2ML syringe ONE (08:48)
[2023-06-27] MEDS ORDERED: MIDAZolam 1 MG/ML 5ML VIAL ONE (08:48)
[2023-06-27] MEDS ORDERED: propofol inj 20 ML IV ONE (08:51)
[2023-06-27] MEDS ORDERED: LIDOcaine 2% (20mg/ml) 5ml vial ONE (08:51)
[2023-06-27] MEDS ORDERED: Potassium Cl 40 MEQ in sodium chloride 0.45% 500 ML IV ONE (09:30)
--- NOTE | 2023-06-27 09:36 | NUR ---
Received from OR via [facility] , accompanied by Anesthesiologist and report given by PAYAL Anesthesiologist. PATIENT A&OX4, DENIES PAIN, V/S WNL, SCD ON , PIV 20G LEFT HAND, BANDAID DRESSING TO MID CHEST C/D/I. Addendum: 06/27/23 at 1009 by Tony Casey RN Amended: Links added.
[2023-06-27] MEDS ORDERED: OXYC-658 PO (09:39)
--- NOTE | 2023-06-27 13:57 | NUR ---
potassium chloride infusion was completed. no s/s of distress at this time.
--- NOTE | 2023-06-27 14:01 | NUR ---
ALL DISCHARGE CRITERIA HAS BEEN MET. VSS, PAIN AT A TOLERABLE LEVEL, VOIDING AND ABLE TO SAFELY AMBULATE AND TRANSFER SELF. IV TAKEN OUT WITHOUT ANY COMPLICATIONS. ALL DISCHARGE INSTRUCTIONS COVERED WITH PATIENT AND ALL QUESTIONS ANSWERED. PATIENT TAKEN OUT VIA WHEELCHAIR WITH ALL BELONGINGS TO PERSONAL VEHICLE WHERE FAMILY DROVE PATIENT HOME. Addendum: 06/27/23 at 1411 by Tony Casey RN Amended: Links added.
== END 2023-06-27 14:01 | disposition home or self-care (01) ==
LOC: PAS 05:59
PROVIDERS: ATTEND Thoracic Surgery (Cardiothoracic Vascular Surgery)
DX: T85.848A Pain due to other internal prosthetic devices, implants and grafts, initial encounter (principal); I25.10 Atherosclerotic heart disease of native coronary artery without angina pectoris; I10 Essential (primary) hypertension; I25.2 Old myocardial infarction; F41.9 Anxiety disorder, unspecified; Z95.1 Presence of aortocoronary bypass graft; Z79.01 Long term (current) use of anticoagulants; Z79.899 Other long term (current) drug therapy; Z87.891 Personal history of nicotine dependence; Z95.5 Presence of coronary angioplasty implant and graft; Z98.890 Other specified postprocedural states; Z88.5 Allergy status to narcotic agent; Y83.8 Other surgical procedures as the cause of abnormal reaction of the patient, or of later complication, without mention of misadventure at the time of the procedure; Y92.89 Other specified places as the place of occurrence of the external cause
CPT/HCPCS: 20680; 36415; 80053; 85025; 87070; 87075; J0690; J2250; J2704; J3010; J3480; J3490; J7030; J7050; J7120; S0020; Z7506; Z7512; A4618; A7000; J3370